=== PATIENT | female | born 1975 | race Two or more races ===

== ENCOUNTER 2020-01-28 07:19 | Outpatient (CLI) | payer OTHER | END 2020-01-28 23:59 | disposition home or self-care (01) | LOC: LAB 07:19 | PROVIDERS: ATTEND Orthopaedic Surgery | DX: Z01.812 Encounter for preprocedural laboratory examination (principal); Z11.59 Encounter for screening for other viral diseases | CPT/HCPCS: U0003-CS ==

== ENCOUNTER 2020-02-01 08:27 | Outpatient (CLI) | payer OTHER ==
[2020-02-01 10:19] LABS: *BILIRUBIN,URIN NEGATIVE (NEGATIVE); *BLOOD, URINE NEGATIVE (NEGATIVE); *CLARITY,URINE CLEAR (CLEAR); *COLOR,URINE YELLOW (YELLOW); *KETONES,URINE NEGATIVE (NEGATIVE); *UROBILINOGEN,URINE 0.2 E.U./dl (NORMAL); LEUKOCYTE ESTERASE ,URINE NEGATIVE (NEGATIVE); NITRITE, URINE NEGATIVE (NEGATIVE); UGLUCOSE NEGATIVE (NEGATIVE)
[2020-02-01 10:23] LABS: BASOPHILS # (AUTO) 0.1 K/uL (0.0-8.0); BASOPHILS % (AUTO) 0.9 % (0.0-2.0); EOSINOPHILS # (AUTO) 0.3 K/uL (0.0-0.7); EOSINOPHILS % (AUTO) 3.9 % (0.0-7.0); HEMATOCRIT 40.8 % (31.2-41.9); HEMOGLOBIN 13.5 g/dL (10.9-14.3); LYMPHOCYTES # (AUTO) 3.1 K/uL (20.0-40.0); LYMPHOCYTES % (AUTO) 40.6 % (20.5-51.5); MEAN CORPUSCULAR HEMOGLOBIN 27.2 uug (24.7-32.8); MEAN CORPUSCULAR HGB CONC 33 g/dL (32.3-35.6); MEAN CORPUSCULAR VOLUME 81.8 fL (75.5-95.3); MONOCYTES # (AUTO) 0.4 K/uL (2.0-10.0); MONOCYTES % (AUTO) 4.8 % (0.0-11.0); NEUTROPHILS # (AUTO) 3.9 K/uL (1.8-8.9); NEUTROPHILS % (AUTO) 49.8 % (38.5-71.5); PLATELET COUNT (AUTO) 115 K/uL (179-408); RED BLOOD CELL COUNT(AUTO) 4.98 MIL/uL (3.63-4.92); WHITE BLOOD COUNT (AUTO) 7.7 K/uL (3.8-11.8)
[2020-02-01 10:31] LABS: CREATININE 0.7 mg/dL (0.6-1.3)
[2020-02-01 10:37] LABS: BILIRUBIN,TOTAL 0.2 mg/dL (0.2-1.0); TOTAL PROTEIN, SERUM 7.3 g/dL (6.4-8.2)
== END 2020-02-01 23:59 | disposition home or self-care (01) ==
LOC: LAB 08:27
PROVIDERS: ATTEND Internal Medicine
DX: Z01.818 Encounter for other preprocedural examination (principal)
CPT/HCPCS: 36415; 85025; 85730; A4663

== ENCOUNTER 2020-02-04 06:29 | Day surgery (SDC) | payer OTHER ==
[2020-02-04 07:16] LABS: *URINE HCG, QUAL NEGATIVE (NEGATIVE)
[2020-02-04] MEDS ORDERED: BUPIVACAINE 0.25% 30 ML VIAL ONE (07:36)
[2020-02-04] MEDS ORDERED: BUPIVACAINE/EPI PF 0.25% 30 ML VIAL ONE (07:37)
[2020-02-04] MEDS ORDERED: BUPIVACAINE/EPI PF 0.5% 10 ML VIAL ONE (07:40)
[2020-02-04] MEDS ORDERED: POLYMYXIN B SULFATE IR ONE ×3 (07:45)
[2020-02-04] MEDS ORDERED: BACITRACIN IR ONE ×3 (07:45)
[2020-02-04] MEDS ORDERED: NORMAL SALINE IR ONE ×3 (07:45)
[2020-02-04] MEDS ORDERED: HYDROMORPHONE 2 MG/1 ML DISP.SYRIN ONE (08:27)
[2020-02-04] MEDS ORDERED: MIDAZOLAM HCL 2 MG/2 ML VIAL ONE (08:27)
[2020-02-04] MEDS ORDERED: ROCURONIUM BROMIDE 50 MG/5 ML VIAL ONE (08:27)
[2020-02-04] MEDS ORDERED: PROPOFOL 200 MG/20 ML BOTTLE ONE (11:30)
[2020-02-04] MEDS ORDERED: IV NORMAL SALINE 1000 ML BAG ONE ×2 (11:30)
[2020-02-04] MEDS ORDERED: LIDOCAINE-MPF 2% 5 ML VIAL ONE (11:30)
[2020-02-04] MEDS ORDERED: ONDANSETRON 4 MG/2 ML VIAL ONE (11:30)
[2020-02-04] MEDS ORDERED: NEOSTIGMINE METHYLSULFATE 10 MG/10 ML VIAL ONE (11:30)
[2020-02-04] MEDS ORDERED: DEXAMETHASONE SOD PHOSPHATE 4 MG INJ ONE (11:30)
[2020-02-04] MEDS ORDERED: KETOROLAC TROMETHAMINE 30 MG INJ ONE (11:30)
[2020-02-04] MEDS ORDERED: METOCLOPRAMIDE HCL 10 MG/2 ML VIAL ONE (11:30)
[2020-02-04] MEDS ORDERED: CEFAZOLIN 1 G VIAL ONE (11:30)
[2020-02-04] MEDS ORDERED: GLYCOPYRROLATE 0.2 MG/ML VIAL ONE (11:30)
[2020-02-04] MEDS ORDERED: HYDROCODONE/APAP 5-325MG TABLET ONE (13:28)
== END 2020-02-04 14:15 | disposition home or self-care (01) ==
LOC: DS 06:29
PROVIDERS: ATTEND Orthopaedic Surgery
DX: M75.101 Unspecified rotator cuff tear or rupture of right shoulder, not specified as traumatic (principal); M19.011 Primary osteoarthritis, right shoulder; F32.9 Major depressive disorder, single episode, unspecified; F41.9 Anxiety disorder, unspecified; Z88.8 Allergy status to other drugs, medicaments and biological substances; Z79.899 Other long term (current) drug therapy; Z98.890 Other specified postprocedural states
CPT/HCPCS: 23120; 23420; 84703; 88304; C1713; J0690; J1100; J1170; J1885; J2250; J2405; J2710; J2765; J3490 ×6; J7120; A4565; A4649; J7030